=== PATIENT | male | born 1975 | race Caucasian/White ===

== ENCOUNTER → 2017-02-27 | Outpatient (CLI) | payer OTHER ==
[~2017-02-27] MED LIST: PERCOCET 5/31 TABLET PO; ZOFRAN ODT4 MG PO
== END | disposition home or self-care (01) ==
LOC: CDC 14:40
DX: M54.10 Radiculopathy, site unspecified (principal); R94.31 Abnormal electrocardiogram [ECG] [EKG]
CPT/HCPCS: 93000

== ENCOUNTER → 2017-09-17 | Outpatient (CLI) | payer OTHER | END | disposition home or self-care (01) | LOC: CDC 09:02 | DX: Z01.810 Encounter for preprocedural cardiovascular examination (principal) | CPT/HCPCS: 93000 ==

== ENCOUNTER → 2017-10-01 13:59 | Emergency (ER) | payer OTHER ==
[~2017-10-01] VITALS: Ht 175.3 cm; Wt 98.1 kg
[2017-10-01 14:01] VITALS: BP 146/98
== END | disposition left against medical advice (07) ==
LOC: EME 13:59
DX: G89.18 Other acute postprocedural pain (principal); Z53.21 Procedure and treatment not carried out due to patient leaving prior to being seen by health care provider
CPT/HCPCS: 99212

== ENCOUNTER → 2017-10-01 | Outpatient (CLI) | payer OTHER | END | disposition home or self-care (01) | LOC: AMB 13:30 | DX: I73.9 Peripheral vascular disease, unspecified (principal); I77.1 Stricture of artery; R91.1 Solitary pulmonary nodule; Z95.820 Peripheral vascular angioplasty status with implants and grafts | CPT/HCPCS: 75635 ==